=== PATIENT | female | born 1940 | race American Indian/Alaskan Native ===

== ENCOUNTER 2021-05-14 14:11 | Emergency (ER) | payer MEDICARE ==
[2021-05-14 15:09] VITALS: BP 119/65
--- NOTE | 2021-05-14 15:55 | Emergency Department Report ---
ED General Adult HPI - General Chief complaint: Extremity Problem,Nontraumatic Stated complaint: SWOLLEN (R) FOOT x2DAYS Time Seen by Provider: 05/14/21 15:53 Source: patient Mode of arrival: Ambulatory Limitations: No Limitations - History of Present Illness Initial comments: 80-year-old -[place] female patient presents with complaints of right foot pain and swelling x2 days. Patient states she awoke suddenly with the pain. She denies any injury, history of gout, fever/chills/sweats, history of cancer, loss of sensation or numbness/tingling/weakness in the foot. She rates her current pain is 8/10 in severity and states it worsens with ambulation and to touch. - Related Data Previous Rx's Medication Instructions Recorded Last Taken Type Diclofenac Sodium [Arthritis Pain] 100 gm TP QID PRN #1 gel..gram. 05/14/21 Unknown Rx Naproxen 500 mg PO BID PRN #14 tablet 05/14/21 Unknown Rx Allergies Allergy/AdvReac Type Severity Reaction Status Date / Time Penicillins Allergy Hives Verified 05/14/21 15:06 ED Review of Systems ROS: Stated complaint: SWOLLEN (R) FOOT x2DAYS Other details as noted in HPI Constitutional: denies: chills, diaphoresis, fever, malaise, weakness Musculoskeletal: joint swelling, arthralgia Skin: change in color Neurological: denies: numbness, paresthesias, abnormal gait ED Past Medical Hx - Past Medical History Previous Medical History?: Yes Hx Hypertension: Yes Hx Diabetes: Yes - Surgical History Past Surgical History?: No - Medications Home Medications: Home Medications Medication Instructions Recorded Confirmed Last Taken Type Diclofenac Sodium [Arthritis Pain] 100 gm TP QID PRN #1 gel..gram. 05/14/21 Unknown Rx Naproxen 500 mg PO BID PRN #14 tablet 05/14/21 Unknown Rx ED Physical Exam - General Limitations: No Limitations General appearance: alert, in no apparent distress - Head Head exam: Present: atraumatic, normocephalic - Eye Eye exam: Present: normal appearance - Respiratory Respiratory exam: Absent: respiratory distress - Cardiovascular Cardiovascular Exam: Present: regular rate - Expanded Lower Extremity Exam Right Foot/Toe exam: Present: full ROM, tenderness (Base of fifth metatarsal), swelling (Noted over base of fifth metatarsal), erythema (Mild over base of fifth metatarsal). Absent: abrasion, laceration, deformity Neuro vascular tendon exam: Absent: pulse deficit - Neurological Exam Neurological exam: Present: alert, oriented X3, normal gait - Psychiatric Psychiatric exam: Present: normal affect, normal mood - Skin Skin exam: Present: warm, dry, intact. Absent: rash ED Course Vital Signs 05/14/21 15:08 Temperature 98.2 F Pulse Rate 74 Respiratory 16 Rate Blood Pressure 119/65 [Right] O2 Sat by Pulse 100 Oximetry ED Medical Decision Making - Radiology Data Radiology results: report reviewed Right foot 3 views INDICATION: Pain FINDINGS: MTP joints and IP joints appear normal. Midfoot alignment appears normal. There is some minimal calcification just to the base of the fifth metatarsal. Findings may be degenerative however clinical correlation with point tenderness. No large avulsion injury or fracture is seen. Signer Name: George Wayne MD Signed: 05/14/2021 4:22 PM Workstation Name: [id number] - Medical Decision Making 80-year-old -[place] female patient presents with complaints of right foot pain and swelling x2 days. Patient states she awoke suddenly with the pain. She denies any injury, history of gout, fever/chills/sweats, history of cancer, loss of sensation or numbness/tingling/weakness in the foot. She rates her current pain is 8/10 in severity and states it worsens with ambulation and to touch. Tenderness to palpation with mild swelling and redness noted over the base of the fifth metatarsal exam. X-ray is consistent with arthritic changes. Will treat conservatively with NSAIDs and icing. Recommend follow-up with primary care or podiatry. She is well-appearing, her vitals are normal, she is stable for discharge home. Discussed strict return precautions in detail with patient who verbalizes understanding. Critical care attestation.: If time is entered above; I have spent that time in minutes in the direct care of this critically ill patient, excluding procedure time. ED Disposition Clinical Impression: Arthritis of foot Disposition: - TO HOME OR SELFCARE Is pt being admited?: No Condition: Stable Instructions: Arthritis Prescriptions: Diclofenac Sodium [Arthritis Pain] 100 gm TP QID PRN #1 gel..gram. PRN Reason: pain Naproxen 500 mg PO BID PRN #14 tablet PRN Reason: pain Referrals: PRIMARY CARE, [Primary Care Provider] - 3-5 Days ALEJANDRINA PARSON DPM [Referring] - 3-5 Days
--- NOTE | 2021-05-14 16:26 | XRay Report ---
Right foot 3 views INDICATION: Pain FINDINGS: MTP joints and IP joints appear normal. Midfoot alignment appears normal. There is some min imal calcification just to the base of the fifth metatarsal. Findings may be degenerative however cli nical correlation with point tenderness. No large avulsion injury or fracture is seen. Signer Name: George Wayne MD Signed: 05/14/2021 4:22 PM Workstation Name: [id number]
--- NOTE | 2021-05-14 17:36 | Event Note ---
Face to Face: For this encounter I have reviewed the PA/ETL ANALYST DEVELOPER documentation, treatment plan, medical decision making, and I had face to face time with this patient. X-ray report that the patient has some arthritic changes at the base of the fifth meta tarsal explained the patient's pain. Patient placed in Ortho shoe given medication for symptomatic relief and she is stable for discharge.
== END 2021-05-14 18:16 | disposition home or self-care (01) ==
LOC: ED 14:11
DX: M19.071 Primary osteoarthritis, right ankle and foot (principal); I10 Essential (primary) hypertension; E11.9 Type 2 diabetes mellitus without complications; Z79.899 Other long term (current) drug therapy; Z88.0 Allergy status to penicillin
CPT/HCPCS: 99283